=== PATIENT | female | born 1955 | race African-American/Black ===

== ENCOUNTER → 2019-08-25 | Day surgery (SDC) | payer MEDICARE, OTHER ==
[2019-08-23 10:44] LABS: BASOPHILS % 0.6 % (0.0-1.0); EOSINOPHILS # (AUTO) 0.3 (0.0-0.4); EOSINOPHILS % 4.4 % (0.0-6.0); HEMATOCRIT 41.2 % (34.2-44.1); HEMOGLOBIN 13.8 g/dL (12.0-16.0); LYMPHOCYTES # (AUTO) 1.9 (1.0-3.2); LYMPHOCYTES % 27.6 % (18.0-39.1); MEAN CORPUSCULAR HEMOGLOBIN 29.1 pg (28-32); MEAN CORPUSCULAR HGB CONC 33.5 g/dL (31-35); MEAN CORPUSCULAR VOLUME 86.7 fL (81-99); MONOCYTES # (AUTO) 0.6 (0.2-0.8); MONOCYTES % 8.7 % (4.4-11.3); NEUTROPHILS % 58.4 % (38.7-80.0); PLATELET COUNT 247 x10e3/uL (140-360); RED BLOOD COUNT 4.75 x10e6/uL (3.6-5.1); RED CELL DISTRIBUTION WIDTH 15.4 % (11.7-14.4)
--- NOTE | 2019-08-23 10:54 | Diagnostic Imaging Report ---
Exam: KUB - 2 views Indication: Preoperative Comparison: Retrograde pyelogram of 05/10/2019 Findings: Right internal nephroureteral stent in place. 4 mm left upper pole renal calculus. No other radiographically apparent urinary calculi. Nonobstructive bowel gas pattern. No free air. No acute osseous injury. Mild degenerative changes of the visualized spine and both hip joints. Impression: Right internal nephroureteral stent in place. 4 mm left upper pole renal calculus. Signed by: Job Chadwick MD on 08/23/2019 10:51 AM
[2019-08-23 11:05] LABS: ANION GAP 13.3 mmol/L (8-16); CALCIUM 9.8 mg/dL (8.4-10.2); CREATININE, SERUM 2.74 mg/dL (0.57-1.11); POTASSIUM 4.3 mmol/L (3.5-5.1)
[~2019-08-25] MED LIST: AMLODIPINE BESYL5 MG PO; ATORVASTATIN CA20 MG PO; B&O 60MG R/S 60 MG SUPP PR ONE; DEXAMETHASONE SOD PHOS INJ 4 MG/ML VIAL ONE; ELIQUIS5 MG PO; GABAPENTIN300 MG PO; IOPAMIDOL 300MG/ML 50ML INFUS..BTL IV ONE; LEVOFLOXACIN 500MG/D5W 100ML 100 ML IV ONE; LIDOCAINE HCL 2% LOCAL INJ 5 ML SDV VIAL INJ ONE; METOPROLOL SUCC25 MG PO; MIDAZOLAM HCL 2 MG/2 ML VIAL ONE; ONDANSETRON HCL INJ 2MG/ML 2ML 2 MG/ML VIAL ONE; PROPOFOL IV EMULSION 10 MG/ML 20 ML VIAL ONE; SEVOFLURANE INHAL SOLN 250 ML PEN BTL ONE; SODIUM BICARBO650 MG PO; TIZANIDINE HCL4 MG PO
[2019-08-25 12:30] VITALS: BP 145/89
--- NOTE | 2019-10-03 03:12 | Operative Report ---
DATE OF PROCEDURE: 08/25/2019 SURGEON: Arthur Canales MD POSTOPERATIVE DIAGNOSES: 1. Right hydronephrosis. 2. Right indwelling ureteral stent. POSTOPERATIVE DIAGNOSES: 1. Right hydronephrosis. 2. Right indwelling ureteral stent. 3. Grade 1 cystocele. 4. Grade 1 rectocele. 5. Urethral hypermobility. 6. Urethral caruncle. 7. Atrophic vaginitis with vaginal os stenosis. OPERATIONS PERFORMED: 1. Cystourethroscopy with complicated removal of right indwelling ureteral stent (separate procedure performed for diagnosis of stent done with separate scope). 2. Right ureteroscopy (separate procedure performed to evaluate the right hydronephrosis). 3. Urological services with supervision and interpretation of ureteroscopy, no radiologist present. 4. Interpretation of retrograde ureteropyelography. 5. Supervision of fluoroscopy, no radiologist present. 6. Pelvic examination under anesthesia. ANESTHESIA: General. COMPLICATIONS: None. CLINICAL SUMMARY: Avelina Zuñiga is a 63-year-old woman, who had a nephrostomy. She had a stent. She is brought to the operating room today to ensure she no longer needs her stent. She is aware of the risks of bleeding, infection, injury to adjacent structures, need for additional procedures and elected to proceed. OPERATIVE PROCEDURE IN DETAIL: Informed consent was verified. Avelina Zuñiga was properly identified, taken to the operating room, placed on the cystoscopy table in supine position. Anesthesia was uneventfully begun. The patient was then carefully and gently repositioned in dorsal lithotomy position. All pressure points well padded. Her genitalia were prepared and draped in the usual sterile fashion. The cystoscope sheath with obturator in place was atraumatically inserted into the patient's urethra and the bladder was drained. A panendoscopy revealed no suspicious lesions. There were no tumors. The stent was emerging from the right ureteral orifice. A guidewire was then placed alongside the stent and guided to the level of the patient's kidney. The stent was then grasped completely, removed and discarded. Semi-rigid ureteroscope was then inserted and the distal ureter was unremarkable. Contrast was injected. Flexible ureteroscope was then placed over the guidewire and guided to the level of the patient's kidney. Panendoscopy revealed Robi's plaques, but no tumors, no stones, and no suspicious lesions were identified. We carefully re-examined the ureter as we exited, it exhibited no stones, no strictures and no reason for any blockage at this time. Interpretation of retrograde ureteropyelography contrast was instilled in retrograde fashion on the right-hand side. There were no tumors. There were no stones. There were no diverticula. There was fullness of the collecting system, which could be attributed to chronic stenting. Unobstructed drainage was observed fluoroscopically. The patient's bladder was drained. Cystoscope was withdrawn. Pelvic examination under anesthesia revealed a grade 1 cystocele, grade 1 rectocele. There was urethral hypermobility. There was a urethral caruncle. There was atrophic vaginitis with vaginal os stenosis. No abnormal palpable pelvic masses could be appreciated as there were no obvious mucosal lesions. The patient was then uneventfully reversed from anesthesia and taken to recovery room in stable condition. Plans will be to follow the patient up on a long-term basis. MD WAYNE Rendon/THOMAS /[id number]
== END | disposition home or self-care (01) ==
LOC: OR 08:30
PROVIDERS: ATTEND Urology
DX: N13.30 Unspecified hydronephrosis (principal); Z46.6 Encounter for fitting and adjustment of urinary device; N28.89 Other specified disorders of kidney and ureter; E11.22 Type 2 diabetes mellitus with diabetic chronic kidney disease; I12.9 Hypertensive chronic kidney disease with stage 1 through stage 4 chronic kidney disease, or unspecified chronic kidney disease; N18.9 Chronic kidney disease, unspecified; N81.10 Cystocele, unspecified; N81.6 Rectocele; N36.41 Hypermobility of urethra; N36.2 Urethral caruncle; N95.2 Postmenopausal atrophic vaginitis; I25.10 Atherosclerotic heart disease of native coronary artery without angina pectoris; J44.9 Chronic obstructive pulmonary disease, unspecified; I48.91 Unspecified atrial fibrillation; E78.5 Hyperlipidemia, unspecified; M19.90 Unspecified osteoarthritis, unspecified site; M48.00 Spinal stenosis, site unspecified; K57.90 Diverticulosis of intestine, part unspecified, without perforation or abscess without bleeding; F32.9 Major depressive disorder, single episode, unspecified; F17.210 Nicotine dependence, cigarettes, uncomplicated; Z88.8 Allergy status to other drugs, medicaments and biological substances; Z01.810 Encounter for preprocedural cardiovascular examination; Z01.812 Encounter for preprocedural laboratory examination; Z01.818 Encounter for other preprocedural examination; Z11.59 Encounter for screening for other viral diseases; Z79.02 Long term (current) use of antithrombotics/antiplatelets; Z95.5 Presence of coronary angioplasty implant and graft
CPT/HCPCS: 36415; 52351; 74018; 74420; 80048; 83970; 84550; 85025; 87635; 93005; C1758; C1769; J1100; J1956; J2001; J2250; J2405; J2704; Q9967; U0002

== ENCOUNTER → 2020-02-01 | Outpatient (CLI) | payer MEDICARE ==
[~2020-02-01] MED LIST changes: -B&O 60MG R/S 60 MG SUPP PR ONE; -DEXAMETHASONE SOD PHOS INJ 4 MG/ML VIAL ONE; +FUROSEMIDE INJ 10 MG/ML 4 ML VIAL ONE; -IOPAMIDOL 300MG/ML 50ML INFUS..BTL IV ONE; -LEVOFLOXACIN 500MG/D5W 100ML 100 ML IV ONE; -LIDOCAINE HCL 2% LOCAL INJ 5 ML SDV VIAL INJ ONE; -MIDAZOLAM HCL 2 MG/2 ML VIAL ONE; -ONDANSETRON HCL INJ 2MG/ML 2ML 2 MG/ML VIAL ONE; -PROPOFOL IV EMULSION 10 MG/ML 20 ML VIAL ONE; -SEVOFLURANE INHAL SOLN 250 ML PEN BTL ONE
--- NOTE | 2020-02-01 21:15 | Diagnostic Imaging Report ---
Renal Scan with Lasix Washout Reason for exam: Chronic kidney disease Technique: Following intravenous administration of 10 mCi of Tc-99m MAG3, dynamic images of the kidneys in the posterior projection were obtained through 40 minutes. Lasix 40 mg was administered intravenously at 10 minutes post injection of the tracer. Report: Left kidney: No evidence of any perfusion of renal parenchyma is seen in the left renal bed or elsewhere in the left abdomen/pelvis. No evidence of any functioning renal parenchyma seen during the imaging time. Right kidney: Perfusion to the right kidney is prompt. The right kidney has a reniform shape with very irregular contours. The kidney is overall reduced in size. Extraction of tracer by the renal parenchyma is decreased. Clearance of tracer from the renal parenchyma is prompt. Small prominent calyces are seen throughout the kidney. Increased pooling of tracer is seen within the calyces. No accumulation of tracer is seen in the renal pelvis. No net drainage of tracer from the pelvicalyceal system is seen prior to administration of Lasix. Washout of tracer from the pelvicalyceal system following administration of Lasix is prolonged with a T-1/2 of 26 minutes (normal less than 15 minutes). No significant stasis of tracer is seen within the right ureter. Differential renal function: The left kidney contributes 0% of total renal function and the right kidney contributes 100% (normal 43-57%). Impression: 1. No perfused or functioning renal parenchyma is seen in the left renal bed or in the left abdomen/pelvis. 2. The right kidney is overall reduced in size with irregular contours, consistent with significant scarring/loss of renal parenchyma. No hydronephrosis is present although the calyces are prominent throughout the kidney. Although the T-1/2 for Lasix washout is prolonged, it is likely falsely elevated due to the impaired function of the right kidney not filling the pelvicalyceal system to capacity. Visually, physiologically significant obstruction of the renal collecting system is not suspected. 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 Signed by: Dr. Ashly Jones M.D. on 02/01/2020 9:12 PM
== END ==
LOC: NM 08:43
PROVIDERS: ATTEND Urology
DX: N18.9 Chronic kidney disease, unspecified (principal)
CPT/HCPCS: 78708; A9562; J1940